=== PATIENT | male | born 2005 | race Caucasian/White ===

== ENCOUNTER 2023-02-11 23:07 | Emergency (ER) | payer OTHER ==
[2023-02-12] MEDS ORDERED: Bupivacaine 0.25% 10 ML VIAL ONE (00:47)
== END 2023-02-12 01:24 | disposition home or self-care (01) ==
LOC: ERS 23:07
DX: S61.216A Laceration without foreign body of right little finger without damage to nail, initial encounter (principal); W26.0XXA Contact with knife, initial encounter
CPT/HCPCS: 12002; S0020

== ENCOUNTER 2023-02-22 16:07 | Emergency (ER) | payer OTHER | END 2023-02-22 18:27 | disposition home or self-care (01) | LOC: ERS 16:07 | DX: S61.216D Laceration without foreign body of right little finger without damage to nail, subsequent encounter (principal); W18.30XD Fall on same level, unspecified, subsequent encounter ==